=== PATIENT | male | born 1970 | race Caucasian/White ===

== ENCOUNTER 2017-08-22 05:59 | Emergency (ER) | END 2017-08-22 09:26 | disposition home or self-care (01) ==

== ENCOUNTER 2018-12-09 10:15 | Emergency (ER) | payer OTHER ==
[~2018-12-09] VITALS: Wt 84.8 kg
[~2018-12-09 10:15] MED LIST: ASPI-831 PO; ATOR20TA38 PO; BEN25 PO; FAMO-96 PO; METO-448 PO; PRED20TA PO; TICA90TA PO
--- NOTE | 2018-12-09 10:39 | ERD ---
ER Documentation Chief Complaint Chief Complaint dizziness, maurer, chills HPI This is a 48-year-old man with a history of CAD, non-STEMI, stent placement presenting with dizziness and near syncopal episodes with exertion occurring intermittently x1 week. He states he has had intermittent diaphoresis as well with these episodes but denies chest pain or chest pressure, no shortness of breath, no recent melena or blood per rectum, patient denies loss of consciousness, no abdominal pain, no fever or chills. ROS All systems reviewed and are negative except as per history of present illness. Medications Home Meds Active Scripts Prednisone* (Prednisone*) 20 Mg Tab, 40 MG PO DAILY for 4 Days, TAB Prov:BRYCE LOMBARDOC 08/22/17 Famotidine* (Pepcid*) 20 Mg Tablet, 20 MG PO BID for 10 Days, TAB Prov:BRYCE LOMBARDOC 08/22/17 Diphenhydramine Hcl* (Benadryl*) 25 Mg Cap, 25 MG PO Q6, #30 CAP Prov:BRYCE LOMBARDOC 08/22/17 Ticagrelor* (Brilinta*) 90 Mg Tablet, 90 MG PO BID for 30 Days, TAB Prov:NADIYA MCKEON NP 11/03/15 Metoprolol Tartrate* (Lopressor*) 25 Mg Tab, 25 MG PO BID for 30 Days, TAB Prov:NADIYA MCKEON NP 11/03/15 Atorvastatin Calcium* (Atorvastatin Calcium*) 20 Mg Tab, 40 MG PO HS for 30 Days, TAB Prov:NADIYA MCKEON NP 11/03/15 Aspirin (Aspirin) 81 Mg Chew, 81 MG PO DAILY for 30 Days, TAB Prov:NADIYA MCKEON NP 11/03/15 Allergies Allergies: Coded Allergies: No Known Allergy (Unverified , 08/22/17) PMhx/Soc History of non-ST elevation myocardial infarction status post balloon angioplasty with stent placement initially revealed critical LAD stenosis (other coronary vessels were patent), CAD, dyslipidemia, hypertension History of Surgery: Yes (HEART STENT X1) Anesthesia Reaction: No Hx Neurological Disorder: Yes Hx Respiratory Disorders: No Hx Cardiac Disorders: Yes (HTN) Hx Miscellaneous Medical Probl: Yes (HIGH CHOLESTEROL) Hx Alcohol Use: No Hx Substance Use: No Hx Tobacco Use: No Smoking Status: Never smoker FmHx Family History: diabetes Physical Exam Vitals Vital Signs Date Temp Pulse Resp B/P (MAP) Pulse Ox O2 O2 Flow FiO2 Time Delivery Rate 12/09/18 58 17 133/80 99 Room Air 12:46 (97) 12/09/18 97.6 67 20 156/94 98 10:18 (114) Physical Exam GENERAL: Well-developed, well-nourished, well-hydrated, in no apparent distress, looks nontoxic in appearance HEENT: Moist mucous membranes, pink conjunctiva, no cervical spine tenderness or step-off deformities, no goiter, no jaundice or icterus, extraocular movements intact without pain. No submandibular induration, and no pharyngeal erythema NEURO: Alert and oriented 3, cranial nerves II through XII intact bilaterally, pupils equal round reactive to light, no focal deficits or facial asymmetry, sensation intact distally Strength 5/5 in upper and lower extremities bilaterally CARDIAC: Regular rate and rhythm, no murmurs rubs or gallops LUNGS: Clear bilaterally no wheezing crackles or stridor ABDOMEN: Soft nontender, no guarding, no rigidity, no rebound, no psoas sign no obturator sign. Normoactive bowel sounds SKIN: Warm and dry to touch, no abrasions, contusions, or hematomas, no lacerations, no ecchymosis, no target lesions, and without ulcers EXTREMITIES: No clubbing cyanosis or edema, calves are bilaterally symmetrical, no Homans sign, no popliteal cord sign. Distal pulses equal and bilateral PSYCH: Normal affect without agitation or irritability Result Diagram: 12/09/18 1050 12/09/18 1050 Results 24 hrs Laboratory Tests Test 12/09/18 10:50 White Blood Count 7.4 10^3/ul Red Blood Count 4.83 10^6/ul Hemoglobin 14.6 g/dl Hematocrit 44.3 % Mean Corpuscular Volume 91.7 fl Mean Corpuscular Hemoglobin 30.2 pg Mean Corpuscular Hemoglobin Concent 33.0 g/dl Red Cell Distribution Width 12.2 % Platelet Count 279 10^3/UL Mean Platelet Volume 9.7 fl Immature Granulocytes % 0.500 % Neutrophils % 62.2 % Lymphocytes % 24.2 % Monocytes % 9.4 % Eosinophils % 2.3 % Basophils % 1.4 % Nucleated Red Blood Cells % 0.0 /100WBC Immature Granulocytes # 0.040 10^3/ul Neutrophils # 4.6 10^3/ul Lymphocytes # 1.8 10^3/ul Monocytes # 0.7 10^3/ul Eosinophils # 0.2 10^3/ul Basophils # 0.1 10^3/ul Nucleated Red Blood Cells # 0.0 10^3/ul Sodium Level 145 mmol/L Potassium Level 3.6 mmol/L Chloride Level 106 mmol/L Carbon Dioxide Level 28 mmol/L Anion Gap 11 Blood Urea Nitrogen 20 mg/dl Creatinine 0.70 mg/dl Est Glomerular Filtrat Rate mL/min > 60 mL/min Glucose Level 99 mg/dl Calcium Level 9.7 mg/dl Total Bilirubin 0.6 mg/dl Direct Bilirubin 0.00 mg/dl Indirect Bilirubin 0.6 mg/dl Aspartate Amino Transf (AST/SGOT) 32 IU/L Alanine Aminotransferase (ALT/SGPT) 42 IU/L Alkaline Phosphatase 72 IU/L Troponin I < 0.012 ng/ml Total Protein 7.8 g/dl Albumin 4.7 g/dl Globulin 3.10 g/dl Albumin/Globulin Ratio 1.51 Lipase 90 U/L Current Medications Medications Dose Sig/Tricia Start Time Status Last (Trade) Ordered Route PRN Stop Time Admin Dose Reason Admin Sodium 500 ml @ Q1H STAT 12/09/18 DC 12/09/18 Chloride 500 mls/hr IV 11:25 11:30 12/09/18 12:24 Ondansetron 4 mg ONCE STAT 12/09/18 DC 12/09/18 HCl (Zofran IV 11:25 11:30 Inj) 12/09/18 11:26 Procedures/MDM IV line was established patient was placed on community life director rhythm strip revealed a sinus rhythm at about 60 bpm with upright P and T waves. Patient was afebrile EKG performed, read by me revealed a sinus bradycardia 58 bpm, normal axis, right ventricular conduction delay QRS duration 112 ms, no concerning ST elevations or depressions noted 1 view chest x-ray performed, read by me no acute infiltrates, no pneumothorax, no air under the diaphragm. I administered 500 cc normal saline IV and Zofran 4 mg IV for complaints of dizziness. CBC was normal, electrolytes revealed a widened BUN/creatinine ratio consistent with dehydration, liver function test normal, troponin negative Differential diagnoses considered, included but not limited to acute coronary syndrome, pulmonary embolism, aortic dissection, abdominal aortic aneurysm, sepsis, stroke, meningitis, encephalitis, pneumonia, appendicitis, cholecystitis, bowel obstruction, pyelonephritis, nephrolithiasis, cystitis, as well as metabolic, hematologic, and electrolyte abnormalities. As well as abscess, cellulitis, fractures, and dislocations. Patient feels much better at this time, and vital signs are normal, symptoms have improved. I did give strict instructions to return to the ED if symptoms continue or worsen, patient will otherwise follow-up with primary care physician. Patient understood instructions and agreed to plan. Disclaimer: Inadvertent spelling and grammatical errors are likely due to EHR/dictation software use and do not reflect on the overall quality of patient care. Also, please note that the electronic time recorded on this note does not necessarily reflect the actual time of the patient encounter. Departure Diagnosis: Primary Impression: Dizziness Additional Impressions: Near syncope Acute dehydration Condition: Good SAMANTHA KING MD Dec 09, 2018 10:39
[2018-12-09] MEDS ORDERED: ONDANSETRON 4 MG INJ IV STA (11:25)
[2018-12-09] MEDS ORDERED: SOD CHLORIDE 0.9% 500 ML IV STA (11:25)
[2018-12-09 12:46] VITALS: BP 133/80; PULSE 58; RESP 17
== END 2018-12-09 12:48 | disposition home or self-care (01) ==
LOC: E/R 10:15
DX: R42 Dizziness and giddiness (principal); I10 Essential (primary) hypertension; I25.10 Atherosclerotic heart disease of native coronary artery without angina pectoris; I25.2 Old myocardial infarction; R55 Syncope and collapse; E86.0 Dehydration; Z79.82 Long term (current) use of aspirin; Z98.61 Coronary angioplasty status
CPT/HCPCS: 36415; 71045; 80053; 83690; 84484; 85025; 93005; 96374; 99284; J2405; J7040